=== PATIENT | male | born 1955 | race Caucasian/White ===

== ENCOUNTER 2022-01-03 16:03 | Inpatient (IN) | payer OTHER, SELFPAY ==
[2022-01-03] VITALS (14 sets, daily range): BP systolic 106–137; BP diastolic 61–82; PULSE 60–86; RESP 16; TEMP 36.6–37.3; O2SAT 97–100; BMI 27.7; BMI 28.6
--- NOTE | 2022-01-03 16:48 | ED.GENADULT ---
HPI - General Adult General Chief complaint: Skin/Abscess/Foreign Body Stated complaint: INFECTED BOIL UNDER RIGHT ARM Time Seen by Provider: 01/03/22 16:14 History of Present Illness HPI narrative: Bo is a 66-year-old male without significant past medical history that presents to emergency department at the request of his primary care physician who states she has concern for worsening infection and failed outpatient management. The patient was reported to have an abscess in his underarm that was subsequently believed to be an infected sebaceous cyst that was incised and drained by his primary care provider in the outpatient clinic. The patient was started on Septra 2 days prior and has completed 3 doses of antibiotic. He returned to his primary care provider today for re-evaluation and wound packing with increasing erythema, pain, and generalized malaise noted. The patient was sent to the emergency department for evaluation for possible sepsis secondary to skin infection. The patient denies fevers, but he reports chills and sweats. He denies nausea, vomiting, or abdominal pain. He denies chest pain or shortness of breath. The patient reports similar previous lesions on his right posterior shoulder and right groin; both resolved without significant intervention. Related Data Home Medications Medication Instructions Recorded Confirmed amoxicillin 500 mg capsule mg 01/03/22 aspirin 81 mg capsule 81 mg PO DAILY 01/03/22 01/03/22 cyclobenzaprine 10 mg tablet mg 01/03/22 finasteride 5 mg tablet mg 01/03/22 gabapentin 300 mg capsule mg 01/03/22 rosuvastatin 5 mg tablet mg 01/03/22 sildenafil 25 mg tablet mg 01/03/22 sulfamethoxazole 800 1 tab PO BID 01/03/22 01/03/22 mg-trimethoprim 160 mg tablet (Bactrim DS) tamsulosin 0.4 mg capsule mg PO 01/03/22 terbinafine HCl 250 mg tablet mg 01/03/22 Allergies Allergy/AdvReac Type Severity Reaction Status Date / Time No Known Drug Allergies Allergy Verified 01/03/22 16:23 Review of Systems Const: Reports: chills, fatigue, malaise and night sweats; Denies: fever Cardio: Denies: chest pain or shortness of breath with exertion Resp: Denies: shortness of breath or cough GI: Denies: abdominal pain, nausea, vomiting, diarrhea or constipation Musculo: Reports: extremity swelling, joint pain and limited range of motion Integ/Breast: Reports: redness, skin tenderness and sores Neuro: Denies: numbness in extremities Endo: Reports: fatigue PFSH PFSH Social History Smoking Status: Former smoker What tobacco products do you use: cigarettes Do you use any of these nicotine containing products: None Second hand tobacco smoke exposure: No How often do you have a drink containing alcohol: monthly or less How often do you have six or more drinks on one occasion: Never AUDIT-C Alcohol total score: 1 Non-prescribed substance use: denies use Exam Const: Vital Signs, click to edit/add: Vital Signs - 24 hr 01/03/22 16:18 01/03/22 16:20 01/03/22 17:00 Temperature 98 F Pulse Rate [Left P ulse Oximeter] 77 Respiratory Rate 16 Blood Pressure [Le ft Upper Arm] 127/69 127/69 127/67 Pulse Oximetry 99 01/03/22 17:20 01/03/22 17:30 01/03/22 17:55 Temperature Pulse Rate [Left P ulse Oximeter] 74 72 72 Respiratory Rate Blood Pressure [Le ft Upper Arm] 115/72 126/69 131/76 Pulse Oximetry 97 98 98 01/03/22 18:00 01/03/22 18:30 01/03/22 19:00 Temperature Pulse Rate [Left P ulse Oximeter] 72 61 62 Respiratory Rate Blood Pressure [Le ft Upper Arm] 130/69 129/66 116/63 Pulse Oximetry 100 99 98 01/03/22 19:25 Temperature 99.2 F Pulse Rate [Left P ulse Oximeter] Respiratory Rate Blood Pressure [Le ft Upper Arm] Pulse Oximetry Documenting provider has reviewed patient's vital signs: yes Common normals: no apparent distress, oriented x3, healthy appearing, alert and well nourished General appearance: cooperative, comfortable, well kempt and well developed Orientation/consciousness: Yes awake, Yes oriented to person, Yes oriented to place and Yes oriented to time HENMT: Common normals: normocephalic and hearing grossly normal bilaterally Head and scalp: normocephalic Resp: Common normals: normal respiratory effort, no retractions, no use of accessory muscles and clear to auscultation bilaterally Effort & inspection: able to speak in complete sentences Auscultation: clear to auscultation bilaterally Cardio: Common normals: regular rate, regular rhythm, S1 normal heart sound and S2 normal heart sound Rate: regular rate Rhythm: regular rhythm Heart sounds: S1 normal and S2 normal GI: Common normals: Normal to inspection, nondistended, normoactive bowel sounds present, soft to palpation and non-tender Palpation: soft Extremity: Common normals: normal to inspection, full ROM and no joint enlargement Neuro: Common normals: oriented x3 Sensorium/orientation: awake, alert, oriented to person, oriented to place and oriented to time Psych: Common normals: thought process normal, cooperative, affect normal, speech normal and activity/motor behavior normal Appearance: well kempt Attitude: calm and engaged Activity/motor behavior: appropriate eye contact Speech: normal speech Thought process: normal thought process Skin: Narrative: 1.5cm x 1.5cm lesion, draining seropurulent fluid in right axilla Course Course Hospital Course: Dawson presented to the ED at the request of his primary physician for further evaluation and treatment of presumed failed outpatient management of axillary abscess versus infected sebaceous cyst. The patient has received a dose of Clindamycin and was recommended to be switched to Vancomycin by hospitalist for admission antibiotics. Reevaluation(s) Reevaluation #1: Discussed findings with patient with previous plan of outpatient antibiotics now inappropriate as patient is unable to participate in the infusion center with COVID positive diagnosis. Time: 19:01 Vital Signs Vital signs: Initial Vital Signs Temperature 98 F 01/03/22 16:18 Temperature Source Temporal Artery Scan 01/03/22 16:18 Pulse Rate 77 01/03/22 16:18 Respiratory Rate 16 01/03/22 16:18 Blood Pressure 127/69 01/03/22 16:18 Blood Pressure Mean 88 01/03/22 16:18 Pulse Oximetry 99 01/03/22 16:18 Oxygen Delivery Method 01/03/22 16:18 Vital Signs Temperature 98 F 01/03/22 16:18 Pulse Rate 77 01/03/22 16:18 Respiratory Rate 16 01/03/22 16:18 Blood Pressure 127/69 01/03/22 16:18 Pulse Oximetry 99 01/03/22 16:18 Temperature 99.2 F 01/03/22 19:25 Pulse Rate 62 01/03/22 19:00 Respiratory Rate 16 01/03/22 16:18 Blood Pressure 116/63 01/03/22 19:00 Pulse Oximetry 98 01/03/22 19:00 Medical Decision Making Lab Data Labs: Lab Results 01/03/22 01/03/22 01/03/22 Range/Units 17:18 17:18 17:18 WBC 5.12 (4.50-11.00) K/uL RBC 4.59 (4.30-5.90) m/uL Hgb 14.6 (13.5-17.5) gm/dL Hct 42.7 (37.0-53.0) % MCV 93 (80-100) fL MCH 32 (26-34) pg MCHC 34 (32-36) gm/dL RDW Coeff of Nehal 12.5 (11.5-15.5) % Plt Count 166 (140-440) K/uL Neut % (Auto) 59.5 (42.0-72.0) % Lymph % (Auto) 21.3 (20-44) % Mccormick % (Auto) 17.8 H (0.0-11.0) % Eos % (Auto) 0.6 (0.0-7.0) % Baso % (Auto) 0.6 (0.0-3.0) % Neut # (Auto) 3.05 (1.7-7.0) K/uL Lymph # (Auto) 1.09 (0.90-2.90) K/uL Mccormick # (Auto) 0.90 (0.00-0.90) K/UL Eos # (Auto) 0.03 (0.00-0.50) K/uL Baso # (Auto) 0.03 (0.00-0.30) K/uL Abs Immat Gran (auto) 0.01 (0.00-0.30) K/uL Sodium 134 L (135-149) mmol/L Potassium 4.0 (3.6-5.1) mmol/L Chloride 106 (96-114) mmol/L Carbon Dioxide 23 (20-32) mmol/L BUN 19 (7-30) mg/dL Creatinine 1.1 (0.5-1.5) mg/dL Estimated Creat Clear 66.36 Estimated GFR 73 ml/min Glucose 106 (60-115) mg/dL Venous Lactic Acid (Serial Order) Calcium 8.5 (8.4-10.6) mg/dL Total Bilirubin 0.2 (0.1-1.5) mg/dL AST 34 (12-35) U/L ALT 26 (4-50) U/L Alkaline Phosphatase 84 (40-150) U/L Total Protein 6.7 (6.0-8.3) g/dL Albumin 3.9 (3.3-5.0) g/dL SARS-CoV-2 (PCR) POSITIVE SARS-CoV-2 A (Negative) 01/03/22 Range/Units 17:18 WBC (4.50-11.00) K/uL RBC (4.30-5.90) m/uL Hgb (13.5-17.5) gm/dL Hct (37.0-53.0) % MCV (80-100) fL MCH (26-34) pg MCHC (32-36) gm/dL RDW Coeff of Nehal (11.5-15.5) % Plt Count (140-440) K/uL Neut % (Auto) (42.0-72.0) % Lymph % (Auto) (20-44) % Mccormick % (Auto) (0.0-11.0) % Eos % (Auto) (0.0-7.0) % Baso % (Auto) (0.0-3.0) % Neut # (Auto) (1.7-7.0) K/uL Lymph # (Auto) (0.90-2.90) K/uL Mccormick # (Auto) (0.00-0.90) K/UL Eos # (Auto) (0.00-0.50) K/uL Baso # (Auto) (0.00-0.30) K/uL Abs Immat Gran (auto) (0.00-0.30) K/uL Sodium (135-149) mmol/L Potassium (3.6-5.1) mmol/L Chloride (96-114) mmol/L Carbon Dioxide (20-32) mmol/L BUN (7-30) mg/dL Creatinine (0.5-1.5) mg/dL Estimated Creat Clear Estimated GFR ml/min Glucose (60-115) mg/dL Venous Lactic Acid (Serial Order) Calcium (8.4-10.6) mg/dL Total Bilirubin (0.1-1.5) mg/dL AST (12-35) U/L ALT (4-50) U/L Alkaline Phosphatase (40-150) U/L Total Protein (6.0-8.3) g/dL Albumin (3.3-5.0) g/dL SARS-CoV-2 (PCR) (Negative) Discharge Plan Discharge Clinical Impression: COVID-19 Cellulitis Qualifiers: Site of cellulitis: extremity Site of cellulitis of extremity: axilla Laterality: right Qualified Code(s): L03.111 - Cellulitis of right axilla Patient Disposition: Admitted As Inpatient Condition: Stable Activity Level: No Restrictions Discharge Diet: Regular
[2022-01-03 17:31] LABS: Lactate Sepsis w/Reflex* 0.6 mmol/L (0.5-1.9)
[2022-01-03] MEDS: 0.9 % SODIUM CHLORIDE 500 ML 500 ML IV (17:35)
[2022-01-03 17:40] LABS: Basophils Absolute Auto 0.03 K/uL (0.00-0.30); Basophils Percent Auto 0.6 % (0.0-3.0); Eosinophils Absolute Auto 0.03 K/uL (0.00-0.50); Eosinophils Percent Auto 0.6 % (0.0-7.0); Hematocrit 42.7 % (37.0-53.0); Hemoglobin* 14.6 gm/dL (13.5-17.5); Immature Granulocytes Abs Auto 0.01 K/uL (0.00-0.30); Lymphocytes Absolute Auto 1.09 K/uL (0.90-2.90); Lymphocytes Percent Auto 21.3 % (20-44); Mean Corpuscular HGB Conc 34 gm/dL (32-36); Mean Corpuscular Hemoglobin 32 pg (26-34); Mean Corpuscular Volume 93 fL (80-100); Monocytes Percent Auto 17.8 % (0.0-11.0); Neutrophils Absolute Auto 3.05 K/uL (1.7-7.0); Neutrophils Percent Auto 59.5 % (42.0-72.0); Platelet Count* 166 K/uL (140-440); RDW Coefficient of Variation % 12.5 % (11.5-15.5); Red Blood Count 4.59 m/uL (4.30-5.90); White Blood Count* 5.12 K/uL (4.50-11.00)
[2022-01-03] MEDS: CLINDAMYCIN 900 MG/50 ML-D5W IVPB (17:44)
[2022-01-03 17:47] LABS: Slide Review Reflex No
[2022-01-03 17:52] LABS: Albumin* 3.9 g/dL (3.3-5.0); Chloride* 106 mmol/L (96-114); Sodium* 134 mmol/L (135-149)
[2022-01-03 17:55] LABS: Alanine Aminotransferase* 26 U/L (4-50); Alkaline Phosphatase* 84 U/L (40-150); Aspartate Amino Transferase* 34 U/L (12-35); Bilirubin Total* 0.2 mg/dL (0.1-1.5); Blood Urea Nitrogen* 19 mg/dL (7-30); Carbon Dioxide* 23 mmol/L (20-32); Creatinine* 1.1 mg/dL (0.5-1.5); Est. Creatinine Clearance* 66.36; Estimated Glomerular Filt Rate 73 ml/min; Glucose* 106 mg/dL (60-115); Total Protein* 6.7 g/dL (6.0-8.3)
[2022-01-03 17:56] LABS: Calcium* 8.5 mg/dL (8.4-10.6)
[2022-01-03 18:36] LABS: SARS PCR* POSITIVE SARS-CoV-2 (Negative)
--- NOTE | 2022-01-03 19:20 | W.PC.EDHO ---
Primary Language: Slovak Preferred Language: Orientation Status: [x] Alert & Oriented [] Slight Confusion [] Known Dx Dementia Transfers By: [x] Assist of 1 [] Assist of 2 [] Lift Active Medications Discontinued Medications Generic Name Dose Route Start Last Admin Trade Name Hoang PRN Reason Stop Dose Admin Clindamycin Phosphate 900 mg 01/03/22 17:30 01/03/22 17:44 Clindamycin 900 Mg/50 [id number] IVPB 01/03/22 17:31 900 mg ONCE ONE Administration Sodium Chloride 500 mls @ 500 mls/hr 01/03/22 17:12 01/03/22 17:35 0.9 % Sodium Chloride 500 Ml IV 01/03/22 18:11 500 mls/hr .Q1H ONE Administration Description of Symptoms ED Triage Present Problem Patient here with cyst in right axilla since last Description . Started on abx by Dr. Arias, a sulfa. Followed up today and is worse. Dr. Arias recommended ED evaluation. ED Triage Date of Onset of 12/27/21 Symptoms Pain Pain Intensity [Right Arm] 6 Pain Scale Used [Right Arm] Numeric (1 - 10) IV Insertion/Site Date of IV Line Insertion [ 01/03/22 Left Antecubital] Oxygen Administration Pulse Oximetry 98 Pulse Oximetry 98 Pulse Oximetry 97 Pulse Oximetry 99 Oxygen Delivery Method Room Air Oxygen Delivery Method Room Air Oxygen Delivery Method Room Air Oxygen Delivery Method Room Air
[2022-01-03 19:33] LABS: Lactate Sepsis 2 Hour 0.7 mmol/L (0.5-1.9)
--- NOTE | 2022-01-03 20:36 | ED.NURSE ---
Report called to [facility] FLOR Milligan.
[2022-01-03] MEDS: ENOXAPARIN 30 MG/0.3ML INJ SUBCUT (22:04)
[2022-01-03] MEDS: GABAPENTIN 300 MG CAPSULE PO (22:04)
--- NOTE | 2022-01-03 22:23 | PC.NURSE ---
Patient has refused Levaquin due to history of tendon surgery. Dr. Cindy park.
--- NOTE | 2022-01-03 22:27 | PM.IMHP1 ---
Hospitalist- H&P: HPI History of Present Illness Date Seen: 01/04/22 Chief complaint: INFECTED BOIL UNDER RIGHT ARM Narrative: Dawson uQispe is a 66 year old male presents the emergency room with worsening right axillary redness and pain. He has had a lump in his right axilla for some time. He became painful and erythematous a few days ago. He had a clinic appointment 2 days ago where he was identified with a sebaceous cyst. It sounds like this was infected any had an I&D of this in clinic. Cultures were done at that time and show Gram-positive cocci. Id and sensitivity pending. At that time he was started on Sulfatrim. The redness in his axilla has gotten significantly worse in the last 2 days. Packing was removed from his I&D site today. He also notes that he had onset of generalized achiness, fatigue and malaise starting 2 days ago. He has had a little bit of cough. A little bit of sore throat and rhinorrhea. Has had some chills and sweats. He is not aware of having a documented fever. He has had no chest pain or abdominal pain. He has been eating less with a poor appetite but still able to eat. No vomiting. No diarrhea. He is vaccinated for COVID. He did have a presumed COVID exposure with a large gathering without masking on Friday, 4 days ago. Review of Systems Narrative: Patient reports other than the above issues he has been feeling well. 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 He lives with his who is his healthcare power of breaker oiler. Code status is full. He does not smoke. He occasionally drinks alcohol. Smoking Status: Former smoker What tobacco products do you use: cigarettes Smoking quit date/years: >15 years ago Do you use any of these nicotine containing products: None Second hand tobacco smoke exposure: No How often do you have a drink containing alcohol: monthly or less How often do you have six or more drinks on one occasion: Never AUDIT-C Alcohol total score: 1 Non-prescribed substance use: denies use Caffeine: Yes (2 cups of coffee/day) service: No Meds Home Medications and Allergies Home Medications Medication Instructions Recorded Confirmed Type amoxicillin 500 mg capsule 2,000 mg PO PRN 01/03/22 01/04/22 History aspirin 81 mg capsule 81 mg PO DAILY 01/03/22 01/03/22 History cyclobenzaprine 10 mg tablet 10 mg PO TID PRN 01/03/22 01/03/22 History finasteride 5 mg tablet 5 mg PO DAILY 01/03/22 01/03/22 History gabapentin 300 mg capsule 300 mg PO HS PRN 01/03/22 01/03/22 History rosuvastatin 5 mg tablet 5 mg PO Q48H 01/03/22 01/04/22 History sildenafil 25 mg tablet 25 mg PO DAILY PRN 01/03/22 01/04/22 History sulfamethoxazole 800 1 tab PO BID 01/03/22 01/03/22 History mg-trimethoprim 160 mg tablet (Bactrim DS) tamsulosin 0.4 mg capsule 0.4 mg PO HS 01/03/22 01/03/22 History terbinafine HCl 250 mg tablet 250 mg PO DAILY 01/03/22 01/04/22 History Allergies Allergy/AdvReac Type Severity Reaction Status Date / Time No Known Drug Allergies Allergy Verified 01/03/22 16:23 Exam Narrative: Exam Narrative: He is alert and appears in no distress. Eyes normal. Oropharynx normal. Neck is supple without mass or adenopathy. Respirations are clear to auscultation. Cardiovascular: S1, S2, regular rate and rhythm. No murmur gallop or rub. Right axilla with a very tender less than 1 cm ulcer draining a small amount of purulent material. He has a hand sized area of erythema in the axilla extending somewhat down on the medial upper arm. Abdomen: Bowel sounds active. Abdomen is soft without tenderness. He has intact pulses and sensation all 4 extremities. No edema. No rash outside the axilla Const: Vital Signs, click to edit/add: Vital Signs - 24 hr 01/03/22 16:18 01/03/22 16:20 01/03/22 17:00 Temperature 98 F Pulse Rate [Left P ulse Oximeter] 77 Respiratory Rate 16 Blood Pressure [Le ft Upper Arm] 127/69 127/69 127/67 Pulse Oximetry 99 01/03/22 17:20 01/03/22 17:30 01/03/22 17:55 Temperature Pulse Rate [Left P ulse Oximeter] 74 72 72 Respiratory Rate Blood Pressure [Le ft Upper Arm] 115/72 126/69 131/76 Pulse Oximetry 97 98 98 01/03/22 18:00 01/03/22 18:30 01/03/22 19:00 Temperature Pulse Rate [Left P ulse Oximeter] 72 61 62 Respiratory Rate Blood Pressure [Le ft Upper Arm] 130/69 129/66 116/63 Pulse Oximetry 100 99 98 01/03/22 19:25 01/03/22 19:30 01/03/22 20:00 Temperature 99.2 F Pulse Rate [Left P ulse Oximeter] 64 60 Respiratory Rate Blood Pressure [Le ft Upper Arm] 129/80 106/82 Pulse Oximetry 99 99 Documenting provider has reviewed patient's vital signs: yes Hospitalist - H&P: Result Labs Labs: Short CBC 01/03/22 Range/Units 17:18 WBC 5.12 (4.50-11.00) K/uL Hgb 14.6 (13.5-17.5) gm/dL Hct 42.7 (37.0-53.0) % Plt Count 166 (140-440) K/uL BMP 01/03/22 17:18 Sodium 134 L Potassium 4.0 Chloride 106 Carbon Dioxide 23 BUN 19 Creatinine 1.1 Glucose 106 Calcium 8.5 Liver Function 01/03/22 Range/Units 17:18 Total Bilirubin 0.2 (0.1-1.5) mg/dL AST 34 (12-35) U/L ALT 26 (4-50) U/L Alkaline Phosphatase 84 (40-150) U/L Albumin 3.9 (3.3-5.0) g/dL Assessment and Plan Assessment and plan (1) Cellulitis of axilla, right: Status: Acute Assessment and Plan: Initiate treatment with vancomycin. Consider treatment for Gram negative infection such as Pseudomonas with quinolone if not getting better or if cultures show Gram-negative rods. Monitor for recurrence of abscess. (2) COVID-19 virus infection: Status: Acute Assessment and Plan: Initiate Paxlovid. will pick up worker prescription at outpatient pharmacy tomorrow (3) Recurrent deep vein thrombosis (DVT): Problem comment: recurrent after elective orthopedic surgery Status: Acute Assessment and Plan: Enoxaparin Plan Hospitalize pending wound cultures and clinical improvement. Transition to appropriate outpatient antibiotic therapy when able. Monitor for complications of COVID
[2022-01-04] VITALS (8 sets, daily range): BP systolic 90–122; BP diastolic 54–73; PULSE 55–69; RESP 16–18; TEMP 36.2–37.8; O2SAT 97–100
[2022-01-04] MEDS: IBUPROFEN 400 MG TABLET 600 MG PO ×3 (00:19→14:29)
--- NOTE | 2022-01-04 05:04 | PC.NURSE ---
Addendum entered by Baldomero Tran RN 01/04/22 06:30: BPs 99/57 and 90/58 Original Note: Temp elev 100.0. Ibuprofen given for that and mild pain w/dry cough w/relief. Mepilex applied to axilla which had about a 1cm o/a w/faint pinkness surrounding. Up ad bruno in room, tolerating diet and ind w/cares. Pt educated on position changes.
--- NOTE | 2022-01-04 08:07 | CRLHL7_ITS ---
For Patients: As a result of the Cures Act, medical imaging exams and procedure reports are released immediately into your electronic medical record. You may view this report before your referring provider. If you have questions, please contact your health care provider. INDICATION: COVID TECHNIQUE: Single view chest. FINDINGS: Normal cardiac mediastinal silhouette. Question extremely subtle opacities in the lung apices which could represent subtle infiltrate versus be related to technique. There is no consolidation. No effusion or pneumothorax. Dictated by Karolina Duong MD @ 01/04/2022 10:28:33 AM (Electronically Signed)
[2022-01-04] MEDS: ENOXAPARIN 30 MG/0.3ML INJ SUBCUT ×2 (08:27→20:21)
[2022-01-04] MEDS: FINASTERIDE 5 MG TABLET PO (08:28)
[2022-01-04 10:03] LABS: Lactate* 0.4 mmol/L (0.5-1.9)
[2022-01-04 10:07] LABS: Basophils Absolute Auto 0.02 K/uL (0.00-0.30); Basophils Percent Auto 0.4 % (0.0-3.0); Eosinophils Absolute Auto 0.03 K/uL (0.00-0.50); Eosinophils Percent Auto 0.6 % (0.0-7.0); Hematocrit 40.9 % (37.0-53.0); Hemoglobin* 13.9 gm/dL (13.5-17.5); Lymphocytes Absolute Auto 1.61 K/uL (0.90-2.90); Lymphocytes Percent Auto 34.8 % (20-44); Mean Corpuscular HGB Conc 34 gm/dL (32-36); Mean Corpuscular Hemoglobin 32 pg (26-34); Mean Corpuscular Volume 94 fL (80-100); Monocytes Percent Auto 17.1 % (0.0-11.0); Neutrophils Absolute Auto 2.17 K/uL (1.7-7.0); Neutrophils Percent Auto 47.1 % (42.0-72.0); Platelet Count* 149 K/uL (140-440); RDW Coefficient of Variation % 12.8 % (11.5-15.5); Red Blood Count 4.35 m/uL (4.30-5.90); White Blood Count* 4.62 K/uL (4.50-11.00)
[2022-01-04 10:13] LABS: Slide Review Reflex No
[2022-01-04 10:23] LABS: Chloride* 109 mmol/L (96-114); Potassium* 4.4 mmol/L (3.6-5.1); Sodium* 136 mmol/L (135-149)
[2022-01-04 10:26] LABS: Creatinine* 0.9 mg/dL (0.5-1.5); Estimated Glomerular Filt Rate 93 ml/min
[2022-01-04 10:27] LABS: Blood Urea Nitrogen* 15 mg/dL (7-30); Carbon Dioxide* 23 mmol/L (20-32); Glucose* 89 mg/dL (60-115); Magnesium* 2.1 mg/dL (1.5-2.6)
[2022-01-04 10:29] LABS: INR 1.08 (0.91-1.10); Prothrombin Time 14.4 Seconds
[2022-01-04 10:37] LABS: C Reactive Protein* < 0.5 mg/dL (0.5-1.0)
--- NOTE | 2022-01-04 11:50 | P.IMPN_ITS ---
Progress Note: A&P Assessment and plan (1) Cellulitis of axilla, right: Status: Acute Assessment and Plan: Patient felt the risks of Levaquin as it regards tendon rupture were unacceptable, he declined the dose last night. He is making excellent clinical progress with the IV vanc. Partial sebaceous cyst is still present - will ask Marjorie from wound clinic and or general surgery to assess. Retraction from original outline of cellulitis noted. Wound cultures and blood cultures were taken last night. Dr. Arias - did this on 01/01 * 0?Result Notes Culture No Growth. ? GRAM STAIN ?4+ PMNs1+ Gram Positive Cocci Resulting Agency:?[facility] Specimen Collected:?01/01/22 ?3:25 PMLast Resulted:?01/02/22 ?2:17 PM (2) COVID-19 virus infection: Status: Acute Assessment and Plan: Not hypoxic. Mild to moderate symptoms. Day 1 paxlovid. (3) Recurrent deep vein thrombosis (DVT): Problem details: recurrent after elective orthopedic surgery Status: Acute Assessment and Plan: Noted Subjective Date Seen: 01/04/22 Interval history: Daily Progress Note - Hospital Medicine Day #: 2 Paxlovid Day#1 Covid + PCR 01/03 CC: swelling, redness in the right armpit less. bad cold symptoms of covid persist. OVERNIGHT UPDATES FROM STAFF & MED, LAB, IMAGING UPDATES 106/55 Pulse 58 Afebrile CBC reassuring this morning Normal INR Metabolic panel normal Wound and blood cultures pending Vanc 12 150 mg q.12 Chest x-ray this morning FINDINGS: Normal cardiac mediastinal silhouette. Question extremely subtle opacities in the lung apices which could represent subtle infiltrate versus be related to technique. There is no consolidation. No effusion or pneumothorax. Review of Systems: See subjective Cardiac: No new chest pain/pressure/palpitations. Respiratory: no new dyspnea. GI: No abdominal bloating Objective: Vitals: see above Lungs: Clear. Cardiac: S1S2. Disposition/Potential discharge - Likely to return to previous living situation. Total time is 70 minutes with greater than 50% spent in counseling and coordination of care. Exam Const: Vital Signs, click to edit/add: Vital Signs - 24 hr 01/03/22 16:18 01/03/22 16:20 01/03/22 17:00 Temperature 98 F Pulse Rate [Left P ulse Oximeter] 77 Pulse Rate [Pulse Oximeter] Respiratory Rate 16 Blood Pressure [Le ft Arm] Blood Pressure [Le ft Upper Arm] 127/69 127/69 127/67 Blood Pressure [Ri ght Arm] Pulse Oximetry 99 01/03/22 17:20 01/03/22 17:30 01/03/22 17:55 Temperature Pulse Rate [Left P ulse Oximeter] 74 72 72 Pulse Rate [Pulse Oximeter] Respiratory Rate Blood Pressure [Le ft Arm] Blood Pressure [Le ft Upper Arm] 115/72 126/69 131/76 Blood Pressure [Ri ght Arm] Pulse Oximetry 97 98 98 01/03/22 18:00 01/03/22 18:30 01/03/22 19:00 Temperature Pulse Rate [Left P ulse Oximeter] 72 61 62 Pulse Rate [Pulse Oximeter] Respiratory Rate Blood Pressure [Le ft Arm] Blood Pressure [Le ft Upper Arm] 130/69 129/66 116/63 Blood Pressure [Ri ght Arm] Pulse Oximetry 100 99 98 01/03/22 19:25 01/03/22 19:30 01/03/22 20:00 Temperature 99.2 F Pulse Rate [Left P ulse Oximeter] 64 60 Pulse Rate [Pulse Oximeter] Respiratory Rate Blood Pressure [Le ft Arm] Blood Pressure [Le ft Upper Arm] 129/80 106/82 Blood Pressure [Ri ght Arm] Pulse Oximetry 99 99 01/03/22 22:42 01/03/22 22:52 01/04/22 01:41 Temperature 99.2 F 100.0 F H Pulse Rate [Left P ulse Oximeter] Pulse Rate [Pulse Oximeter] 86 69 Respiratory Rate 16 16 Blood Pressure [Le ft Arm] Blood Pressure [Le ft Upper Arm] Blood Pressure [Ri ght Arm] 137/61 99/57 L Pulse Oximetry 99 99 97 01/04/22 04:12 01/04/22 08:20 01/04/22 09:15 Temperature 97.6 F 97.1 F L Pulse Rate [Left P ulse Oximeter] Pulse Rate [Pulse Oximeter] 60 58 L 58 L Respiratory Rate 16 16 16 Blood Pressure [Le ft Arm] 106/55 L Blood Pressure [Le ft Upper Arm] Blood Pressure [Ri ght Arm] 90/58 L Pulse Oximetry 100 100 Labs Labs: Laboratory Results - last 24 hr 01/03/22 01/03/22 01/03/22 17:18 17:18 17:18 WBC 5.12 RBC 4.59 Hgb 14.6 Hct 42.7 MCV 93 MCH 32 MCHC 34 RDW Coeff of Nehal 12.5 Plt Count 166 Neut % (Auto) 59.5 Lymph % (Auto) 21.3 [place]uster % (Auto) 17.8 H Eos % (Auto) 0.6 Baso % (Auto) 0.6 Neut # (Auto) 3.05 Lymph # (Auto) 1.09 [place] # (Auto) 0.90 Eos # (Auto) 0.03 Baso # (Auto) 0.03 Abs Immat Gran (auto) 0.01 INR Sodium 134 L Potassium 4.0 Chloride 106 Carbon Dioxide 23 BUN 19 Creatinine 1.1 Estimated Creat Clear 66.36 Estimated GFR 73 Glucose 106 Lactate Venous Lactic Acid (Serial Order) Calcium 8.5 Magnesium Total Bilirubin 0.2 AST 34 ALT 26 Alkaline Phosphatase 84 C-Reactive Protein Total Protein 6.7 Albumin 3.9 SARS-CoV-2 (PCR) POSITIVE SARS-CoV-2 A 01/03/22 01/04/22 01/04/22 17:18 09:50 09:50 WBC 4.62 RBC 4.35 Hgb 13.9 Hct 40.9 MCV 94 MCH 32 MCHC 34 RDW Coeff of Nehal 12.8 Plt Count 149 Neut % (Auto) 47.1 Lymph % (Auto) 34.8 [place] % (Auto) 17.1 H Eos % (Auto) 0.6 Baso % (Auto) 0.4 Neut # (Auto) 2.17 Lymph # (Auto) 1.61 [place]uster # (Auto) 0.80 Eos # (Auto) 0.03 Baso # (Auto) 0.02 Abs Immat Gran (auto) 0.00 INR 1.08 Sodium Potassium Chloride Carbon Dioxide BUN Creatinine Estimated Creat Clear Estimated GFR Glucose Lactate Venous Lactic Acid (Serial Order) Calcium Magnesium Total Bilirubin AST ALT Alkaline Phosphatase C-Reactive Protein Total Protein Albumin SARS-CoV-2 (PCR) 01/04/22 01/04/22 09:50 09:50 WBC RBC Hgb Hct MCV MCH MCHC RDW Coeff of Nehal Plt Count Neut % (Auto) Lymph % (Auto) Custer % (Auto) Eos % (Auto) Baso % (Auto) Neut # (Auto) Lymph # (Auto) Custer # (Auto) Eos # (Auto) Baso # (Auto) Abs Immat Gran (auto) INR Sodium 136 Potassium 4.4 Chloride 109 Carbon Dioxide 23 BUN 15 Creatinine 0.9 Estimated Creat Clear 73.00 Estimated GFR 93 Glucose 89 Lactate 0.4 L Venous Lactic Acid (Serial Order) Calcium 8.0 L Magnesium 2.1 Total Bilirubin AST ALT Alkaline Phosphatase C-Reactive Protein < 0.5 L Total Protein Albumin SARS-CoV-2 (PCR)
--- NOTE | 2022-01-04 15:50 | PM.WSCN ---
Date of Consult Patient: Trena Patient Consult date: 01/04/22 Requesting Physician: Hospitalist Primary Care Provider: Alida Arias MD Consult Narrative Reason for consult: Cellulitis right axilla Narrative: Dawson Quispe is a 66 year old male without significant past medical history that presented to the ER on 01/03/22 at the request of his PCP for further eval of infected right axilla sebaceous cyst he had failed outpatient management. Five days ago his primary care provider had performed an I and D to the area and patient was started on oral antibiotics. Wound culture was completed and showed Gram-positive cocci. Returned to the clinic 4 days later for follow-up at that time he was noted to be febrile and had deterioration of the area. In the clinic he was noted to have increasing erythema, pain in general malaise. There was concern for possible sepsis secondary to cellulitis of right axilla The patient was reported to have an abscess in his underarm that was subsequently believed to be an infected sebaceous cyst that was incised and drained by his primary care provider in the outpatient clinic.? While in the ER patient received COVID testing and was found to be COVID + PCR 01/03. Has received both his vaccinations and he has received a booster. Exposure was believed to have occurred 5 days ago when he attended a large uatsdin gathering and states he did not wear a mask at that time otherwise he had been faithful wearing a mask. Does report that prior to this hospitalization over the past 4-5 days he has experienced chills and sweats and fatigue. Has had cough and runny nose he was not aware of having a fever. Patient was started on Paxlovid and Lovenox as he has history of recurrent DVTs. Since being admitted to inpatient repeat wound culture has been collected and is pending at this time blood cultures were also completed. Patient was started on IV vancomycin. He has since improved and there is notable retraction of his cellulitis within the borders of the skin markings, but there remains partial sebaceous cyst and wound services has been requested to evaluate and if deemed appropriate evacuate remnants and debride any necessary nonviable tissue. Review of Systems Status of ROS: Reports: 6 or more systems reviewed and unremarkable except as noted in History and below Const: Reports: fever (afebrile for the las 12 hours) Eyes: Reports: other (wearing glasses) [facility] Medical History BPH (benign prostatic hyperplasia) Concussion Recurrent deep vein thrombosis (DVT) Surgical History History of appendectomy History of arthroplasty of left knee History of fusion of lumbar spine History of tonsillectomy History of total hip arthroplasty Family History (Updated 01/03/22 @ 22:34 by Farhat White MD) Father Diabetes High blood pressure Brother Coronary artery disease High blood pressure Mother High blood pressure Social History Smoking Status: Former smoker What tobacco products do you use: cigarettes Smoking quit date/years: >15 years ago Do you use any of these nicotine containing products: None Second hand tobacco smoke exposure: No How often do you have a drink containing alcohol: monthly or less How often do you have six or more drinks on one occasion: Never AUDIT-C Alcohol total score: 1 Non-prescribed substance use: denies use Caffeine: Yes (2 cups of coffee/day) service: No Meds Home Medications and Allergies Home Medications Medication Instructions Recorded Confirmed Type amoxicillin 500 mg capsule 2,000 mg PO PRN 01/03/22 01/04/22 History aspirin 81 mg capsule 81 mg PO DAILY 01/03/22 01/03/22 History cyclobenzaprine 10 mg tablet 10 mg PO TID PRN 01/03/22 01/03/22 History finasteride 5 mg tablet 5 mg PO DAILY 01/03/22 01/03/22 History gabapentin 300 mg capsule 300 mg PO HS PRN 01/03/22 01/03/22 History rosuvastatin 5 mg tablet 5 mg PO Q48H 01/03/22 01/04/22 History sildenafil 25 mg tablet 25 mg PO DAILY PRN 01/03/22 01/04/22 History sulfamethoxazole 800 1 tab PO BID 01/03/22 01/03/22 History mg-trimethoprim 160 mg tablet (Bactrim DS) tamsulosin 0.4 mg capsule 0.4 mg PO HS 01/03/22 01/03/22 History terbinafine HCl 250 mg tablet 250 mg PO DAILY 01/03/22 01/04/22 History Allergies Allergy/AdvReac Type Severity Reaction Status Date / Time No Known Drug Allergies Allergy Verified 01/03/22 16:23 Exam Const: Vital Signs, click to edit/add: Vital Signs - 24 hr 01/03/22 16:18 01/03/22 16:20 01/03/22 17:00 Temperature 98 F Pulse Rate [Left P ulse Oximeter] 77 Pulse Rate [Pulse Oximeter] Respiratory Rate 16 Blood Pressure [Le ft Arm] Blood Pressure [Le ft Upper Arm] 127/69 127/69 127/67 Blood Pressure [Ri ght Arm] Pulse Oximetry 99 01/03/22 17:20 01/03/22 17:30 01/03/22 17:55 Temperature Pulse Rate [Left P ulse Oximeter] 74 72 72 Pulse Rate [Pulse Oximeter] Respiratory Rate Blood Pressure [Le ft Arm] Blood Pressure [Le ft Upper Arm] 115/72 126/69 131/76 Blood Pressure [Ri ght Arm] Pulse Oximetry 97 98 98 01/03/22 18:00 01/03/22 18:30 01/03/22 19:00 Temperature Pulse Rate [Left P ulse Oximeter] 72 61 62 Pulse Rate [Pulse Oximeter] Respiratory Rate Blood Pressure [Le ft Arm] Blood Pressure [Le ft Upper Arm] 130/69 129/66 116/63 Blood Pressure [Ri ght Arm] Pulse Oximetry 100 99 98 01/03/22 19:25 01/03/22 19:30 01/03/22 20:00 Temperature 99.2 F Pulse Rate [Left P ulse Oximeter] 64 60 Pulse Rate [Pulse Oximeter] Respiratory Rate Blood Pressure [Le ft Arm] Blood Pressure [Le ft Upper Arm] 129/80 106/82 Blood Pressure [Ri ght Arm] Pulse Oximetry 99 99 01/03/22 22:42 01/03/22 22:52 01/04/22 01:41 Temperature 99.2 F 100.0 F H Pulse Rate [Left P ulse Oximeter] Pulse Rate [Pulse Oximeter] 86 69 Respiratory Rate 16 16 Blood Pressure [Le ft Arm] Blood Pressure [Le ft Upper Arm] Blood Pressure [Ri ght Arm] 137/61 99/57 L Pulse Oximetry 99 99 97 01/04/22 04:12 01/04/22 08:20 01/04/22 09:15 Temperature 97.6 F 97.1 F L Pulse Rate [Left P ulse Oximeter] Pulse Rate [Pulse Oximeter] 60 58 L 58 L Respiratory Rate 16 16 16 Blood Pressure [Le ft Arm] 106/55 L Blood Pressure [Le ft Upper Arm] Blood Pressure [Ri ght Arm] 90/58 L Pulse Oximetry 100 100 01/04/22 13:20 Temperature 97.6 F Pulse Rate [Left P ulse Oximeter] Pulse Rate [Pulse Oximeter] 55 L Respiratory Rate 16 Blood Pressure [Le ft Arm] 115/73 Blood Pressure [Le ft Upper Arm] Blood Pressure [Ri ght Arm] Pulse Oximetry 100 Documenting provider has reviewed patient's vital signs: yes Common normals: no apparent distress and alert General appearance: cooperative Orientation/consciousness: Yes awake HENMT: Common normals: normocephalic, head/scalp atraumatic and external ears normal Head and scalp: normocephalic and atraumatic External ear: external ears normal Eye: Other: wearing glasses Neck & C-Spine: Common normals: no lymphadenopathy General: normal visual inspection Chest: Breast/axilla inspection: abnormal inspection of the axilla Other: right axilla with diffuse erythema extending circumferentially from [id number], open drainage ulceration with purulent fibrosis material visualized on visual inspection. tender to palpation, fluctuant Resp: Common normals: normal respiratory effort Effort & inspection: able to speak in complete sentences Neuro: Sensorium/orientation: awake and alert Speech: speech normal Gait (neuro): normal gait Psych: Common normals: mental status grossly normal and speech normal Attitude: calm and engaged Activity/motor behavior: appropriate eye contact Speech: normal speech Skin: Common normals: skin turgor normal Narrative: tender fluctuant infected cyst with surrounding erythema maintained within skin markings to right axilla measuring [id number] and right posterior shoulder measuring 0.5cmX0.5cm. General skin exam: turgor normal Lesions: lesion noted (right axilla and right posterior shoulder ) Wounds: wounds noted drainage and with surrounding erythema Labs Labs: Short CBC 01/03/22 01/04/22 Range/Units 17:18 09:50 WBC 5.12 4.62 (4.50-11.00) K/uL Hgb 14.6 13.9 (13.5-17.5) gm/dL Hct 42.7 40.9 (37.0-53.0) % Plt Count 166 149 (140-440) K/uL BMP 01/03/22 01/04/22 17:18 09:50 Sodium 134 L 136 Potassium 4.0 4.4 Chloride 106 109 Carbon Dioxide 23 23 BUN 19 15 Creatinine 1.1 0.9 Glucose 106 89 Calcium 8.5 8.0 L Liver Function 01/03/22 Range/Units 17:18 Total Bilirubin 0.2 (0.1-1.5) mg/dL AST 34 (12-35) U/L ALT 26 (4-50) U/L Alkaline Phosphatase 84 (40-150) U/L Albumin 3.9 (3.3-5.0) g/dL Assessment and Plan Assessment and plan (1) Cellulitis of axilla, right: Status: Acute Assessment and Plan: Keep area clean and covered. Nursing to utilize surgical clippers to pair down axilla hair prior to discharge. Nursing to change dressing on 01/05/22, then EOD and PRN if saturated. Right axilla: cleanse with vashe, taking care to irrigate into wound. cut small strip of Aquacel Ag and gently pack into wound, leaving tail and making sure to not overpack the wound. Cover with mepilex, or similar border foam dressing. Right posterior shoulder: wound was packed with a small amount of aquacel Ag. However, due to small size of wound, okay if nursing deems appropriate to transition to applying Medihoney to the wound bed and covering with Mepilex. Referral to wound center, patient to follow-up in wound center on 01/08/22 at 0930. Patient to call wound center with any ongoing wound care needs after discharge from inpatient services: [phone] (2) COVID-19 virus infection: Status: Acute (3) Recurrent deep vein thrombosis (DVT): Problem comment: recurrent after elective orthopedic surgery Status: Acute Procedures I/D Type: abscess (Consent: Verbal consent obtained. Risks, benefits, and alternatives were discussed. ) Details: complex Site: other (axila and right posterior shoulder.) Side (if applicable): right Anesthetic used: lidocaine 1% (with EPI. was injected into the skin and subcutaneous tissue around the cyst.) Technique: incised with #11 blade (used to create an ellipse and completely excise the cyst; excised from the surrounding subcutaneous fat. excised cyst was discarded. ) Amount of fluid (mL): 5 (Gently probed with curved hemostats to break up loculations. Manually expressed purulent, fibrosis material, ) Irrigation: Yes Packing used?: plain (Aquacel Ag packed into wound. covered with mepilex.) Complications: other ( Hemostasis was achieved with pressure )
[2022-01-04] MEDS: ACETAMINOPHEN 325 MG TABLET 650 MG PO (16:22)
[2022-01-04] MEDS: OXYCODONE 5 MG TABLET PO (17:38)
[2022-01-04] MEDS: SENNOSIDES 1 TAB TABLET PO (17:38)
--- NOTE | 2022-01-04 19:00 | PC.NURSE ---
End of shift-- Very pleasant and cooperative, alert and oriented patient. VSS and pt is afebrile. SPO2 maintained >94% on RA. He c/o pain in his right armpit and shoulder following drainage of cysts by wound nurse earlier today which he rated 4-5 out of 10, but appeared much more uncomfortable. He was given Tylenol and Motrin with no relief and MD was notified. Pt given Oxycodone per MD order and stated improvement following. LS CTA and pt c/o a productive cough with yellowish sputum. BS+ x4 and pt stated a normal BM yesterday, but was given PRN senna prophylactically with Oxycodone. He denied nausea and ate 100% of a regular diet without difficulty. He was up independently in room and tolerated it well. was at bedside today and appears very loving and supportive. Report to oncoming shift.
[2022-01-04] MEDS: GABAPENTIN 300 MG CAPSULE PO (20:21)
[2022-01-05] VITALS (9 sets, daily range): BP systolic 105–134; BP diastolic 59–81; PULSE 48–62; RESP 12–18; TEMP 36.3–36.8; O2SAT 98–100
--- NOTE | 2022-01-05 06:15 | PC.NURSE ---
Shift note: Right chest & shoulder Mepilex is intact and clean, no drainage noted, redness reduced from an outline. Pt is afebrile, independent in the room, no c/o pain throughout this shift
[2022-01-05 07:29] LABS: Hematocrit 40.4 % (37.0-53.0); Hemoglobin* 13.9 gm/dL (13.5-17.5); Mean Corpuscular HGB Conc 34 gm/dL (32-36); Mean Corpuscular Hemoglobin 32 pg (26-34); Mean Corpuscular Volume 94 fL (80-100); Platelet Count* 134 K/uL (140-440); Red Blood Count 4.32 m/uL (4.30-5.90); White Blood Count* 4.92 K/uL (4.50-11.00)
[2022-01-05 07:35] LABS: Slide Review Reflex No
[2022-01-05 07:55] LABS: Chloride* 109 mmol/L (96-114); Potassium* 4.7 mmol/L (3.6-5.1); Sodium* 133 mmol/L (135-149)
[2022-01-05 07:58] LABS: Blood Urea Nitrogen* 18 mg/dL (7-30); Carbon Dioxide* 25 mmol/L (20-32); Estimated Glomerular Filt Rate 82 ml/min
[2022-01-05 07:59] LABS: Calcium* 8.1 mg/dL (8.4-10.6); Glucose* 91 mg/dL (60-115)
[2022-01-05 08:06] LABS: C Reactive Protein* < 0.5 mg/dL (0.5-1.0)
[2022-01-05] MEDS: FINASTERIDE 5 MG TABLET PO (08:52)
[2022-01-05] MEDS: ENOXAPARIN 30 MG/0.3ML INJ SUBCUT ×2 (08:52→20:52)
[2022-01-05] MEDS: IBUPROFEN 400 MG TABLET 600 MG PO (11:53)
--- NOTE | 2022-01-05 16:25 | P.IMPN_ITS ---
Progress Note: A&P Assessment and plan (1) Cellulitis of axilla, right: Status: Acute Assessment and Plan: Much improved. Continue with current IV antibiotics. (2) COVID-19 virus infection: Status: Acute Assessment and Plan: Concerned that his symptoms for COVID-19 are not improving. (3) Recurrent deep vein thrombosis (DVT): Problem details: recurrent after elective orthopedic surgery Status: Acute Assessment and Plan: Stable at this time. Plan Reviewed impression with patient. Answered his questions. He asked us to p laura as specified. I anticipate he might be able to be discharged as early as 24-48 hours from now. Time Spent With Patient Total time spent: 30 minutes Subjective Time Seen by Provider: 09:30 Date Seen: 01/05/22 Interval history: Generally improved. Dressing change was uncomfortable but tolerable. Less redness in right axilla. Still notes altered taste awareness. Tolerating activities. Denies chest heaviness, pressure, tightness, or pain. Denies syncope or near-syncope. Denies orthostasis. Denies nausea or vomiting. Denies dyspnea at rest or with exertion. Exam Narrative: Exam Narrative: Appears comfortable. No acute distress. Alert, oriented to self, place, time, situation. Mood and affect are congruent. Pleasant and cooperative. Articulate. Lungs are entirely clear to auscultation without wheezing rhonchi or rales. Heart tones with regular rhythm, normal S1-S2. Abdomen with active bowel sounds, soft, nontender. No focal motor neurologic deficits. No tremor asterixis or ataxia. Skin warm dry and intact, save the wound in the right axilla and right shoulder area with dressings appropriately him place. Wounds appear clean and dry. Const: Vital Signs, click to edit/add: Vital Signs - 24 hr 01/04/22 16:26 01/04/22 20:00 01/05/22 00:00 Temperature 97.4 F L Pulse Rate [Pulse Oximeter] 63 60 62 Respiratory Rate 16 18 16 Blood Pressure [Le ft Arm] 106/54 L Blood Pressure [Ri ght Arm] Pulse Oximetry 99 98 01/05/22 04:00 01/05/22 07:00 01/05/22 08:00 Temperature 97.4 F L 98 F Pulse Rate [Pulse Oximeter] 48 L 53 L 53 L Respiratory Rate 18 12 12 Blood Pressure [Le ft Arm] 105/59 L Blood Pressure [Ri ght Arm] 131/73 Pulse Oximetry 99 100 01/05/22 12:00 01/05/22 15:00 Temperature 98 F 97.8 F Pulse Rate [Pulse Oximeter] 51 L 59 L Respiratory Rate 12 12 Blood Pressure [Le ft Arm] Blood Pressure [Ri ght Arm] 134/73 114/66 Pulse Oximetry 100 100 Documenting provider has reviewed patient's vital signs: yes Labs Labs: Laboratory Results - last 24 hr 01/05/22 01/05/22 07:04 07:04 WBC 4.92 RBC 4.32 Hgb 13.9 Hct 40.4 MCV 94 MCH 32 MCHC 34 Plt Count 134 L Sodium 133 L Potassium 4.7 Chloride 109 Carbon Dioxide 25 BUN 18 Creatinine 1.0 Estimated Creat Clear 73.00 Estimated GFR 82 Glucose 91 Calcium 8.1 L C-Reactive Protein < 0.5 L
--- NOTE | 2022-01-05 18:40 | PC.NURSE ---
End of Shift: Patient pleasant and cooperative. Patient is vitally stable, lungs clear, BS WNL, IV SL and intact. Patient is independent in room. Patient rated no pain until after dressing change in which he rated pain at most 4-5/10, ibuprofen was given once. Dressing change was completed as instructed in MD's note. Patient's shoulder and axillary wound are C/D/I. Patient is tolerating regular diet, urinating, and had 2 BMs today, one formed and one loose. Patient did report some dizziness in the morning, resolved after eating lunch.
[2022-01-05] MEDS: SODIUM CHLORIDE 0.9 % (FLUSH) 10 ML SYRINGE 5 ML IVF (20:57)
[2022-01-05] MEDS: GABAPENTIN 300 MG CAPSULE PO (22:50)
[2022-01-06 04:31] VITALS: BP 115/60; PULSE 55; RESP 16; TEMP 37.3; O2SAT 95
[2022-01-06] MEDS: IBUPROFEN 400 MG TABLET 600 MG PO ×2 (04:40→12:32)
--- NOTE | 2022-01-06 06:26 | PC.NURSE ---
Shift note: The pt has been pleasant and cooperative. The dressing to left armpit x2 C/D/I. The redness to the left armpit has been improving . The pt has been denying pain to the wound site. He has been in RA with Spo2 in the 90s. Denied chest pain and other distress .
[2022-01-06 07:00] VITALS: BP 104/73; PULSE 57; RESP 18; TEMP 36.3; O2SAT 100
[2022-01-06] MEDS: FINASTERIDE 5 MG TABLET PO (09:08)
[2022-01-06] MEDS: ENOXAPARIN 30 MG/0.3ML INJ SUBCUT (09:08)
[2022-01-06] MEDS: SODIUM CHLORIDE 0.9 % (FLUSH) 10 ML SYRINGE 5 ML IVF (09:38)
[2022-01-06 11:00] VITALS: BP 117/57; PULSE 64; RESP 18; TEMP 36.2; O2SAT 100
[2022-01-06] MEDS: OXYCODONE 5 MG TABLET PO (12:30)
--- NOTE | 2022-01-06 16:02 | P.DS_ITS ---
DS: Providers Provider Time Seen by Provider: 10:15 Date Seen: 01/06/22 Date of admission: 01/03/22 20:23 Primary care physician: Alida Arias MD Admitting Clinician: Farhat White MD Consults: 01/04/22 11:54 Consult to Wound Care [CONS] Routine Comment: Consulting Provider: Odessa Rojo Attending Physician on discharge: Gerry Layton MD Date of Discharge: 01/06/22 DS: Diagnosis Discharge Diagnosis (1) Cellulitis of axilla, right: Status: Acute (2) MSSA (methicillin susceptible Staphylococcus aureus) infection: Status: Acute (3) COVID-19 virus infection: Status: Acute DS: Summary Hospital Course Hospital Course: Dawson presented to the ED at the request of his primary physician for further evaluation and treatment of presumed failed outpatient management of axillary abscess versus infected sebaceous cyst. Dawson Quispe is a 66 year old male presents the emergency room with worsening right axillary redness and pain.? He has had a lump in his right axilla for some time.? He became painful and erythematous a few days ago.? He had a clinic appointment 2 days ago where he was identified with a sebaceous cyst.? It sounds like this was infected any had an I&D of this in clinic.? Cultures were done at that time and show Gram-positive cocci.? Id and sensitivity pending.? At that time he was started on Sulfatrim.? The redness in his axilla has gotten significantly worse in the last 2 days.? Packing was removed from his I&D site today. He also notes that he had onset of generalized achiness, fatigue and malaise starting 2 days ago.? He has had a little bit of cough.? A little bit of sore throat and rhinorrhea.? Has had some chills and sweats.? He is not aware of having a documented fever.? He has had no chest pain or abdominal pain.? He has been eating less with a poor appetite but still able to eat.? No vomiting.? No diarrhea. He is vaccinated for COVID.? He did have a presumed COVID exposure with a large gathering without masking on Friday, 4 days ago. In hospital he was initially administered a single dose of IV clindamycin in the emergency department. Subsequently we switched to IV vancomycin. Eventually receive the wound culture results from a specimen obtained in the outpatient setting that grew out MSSA. Also in hospital we consulted the [facility] staff who completed the incision and drainage of the axilla. Patient will have follow-up with the Wound Clinic hereafter. In hospital we perform daily dressing changes. At time of discharge we asked him to keep the dressing in place until he has follow-up in the Wound Clinic this coming Friday. Patient had a SARS-CoV-2 PCR test that was positive on admission. He was treated with 3 days of remdesivir while in hospital. Recommended he receive his 2nd booster vaccine after discharge from the hospital. Also recommended that this coming fall in the 2nd generation COVID vaccines come out directed toward recent SARS-CoV-2 variants that he received that booster as well. Discuss additional mitigation procedures for him to adhere to hereafter. Status at Discharge Functional status at discharge: independent ambulation Overall status at discharge: patient is back to baseline Time Spent with Patient Time attestation: Total time spent providing and/or coordinating discharge services: Time spent: Greater than 30 minutes Exam Narrative: Exam Narrative: Erythema of the right axilla is much less intense. It does not go outside jessica in that we gildardo around the area of cellulitis when he 1st presented to the hospital. Lungs remain clear to auscultation. Heart tones with regular rhythm. Abdomen with active bowel sounds soft nontender. Independent transfer, station, and gait. No focal motor neurologic deficits. Cranial nerves 3-12 grossly intact. Const: Vital Signs, click to edit/add: Vital Signs - 24 hr 01/05/22 21:07 01/05/22 22:45 01/05/22 22:57 Temperature 98.3 F 97.5 F L Pulse Rate [Pulse Oximeter] 55 L 54 L 54 L Respiratory Rate 16 16 16 Blood Pressure [Le ft Arm] 106/66 129/81 Pulse Oximetry 99 98 01/06/22 04:31 01/06/22 07:00 01/06/22 11:00 Temperature 99.1 F 97.4 F L 97.1 F L Pulse Rate [Pulse Oximeter] 55 L 57 L 64 Respiratory Rate 16 18 18 Blood Pressure [Le ft Arm] 115/60 104/73 117/57 L Pulse Oximetry 95 100 100 Documenting provider has reviewed patient's vital signs: yes DS: Data Data Completed and Pending Labs on day of discharge: Preliminary micro results at discharge 01/03/22 17:42 Blood Culture - Preliminary Blood NO GROWTH AFTER 48 HOURS 01/03/22 17:18 Blood Culture - Preliminary Blood NO GROWTH AFTER 48 HOURS Discharge Plan Discharge Disposition: Home, Self-Care Date of Admission: 01/03/22 20:23 Attending Provider on Discharge: Gerry Layton Consulting Providers: Odessa Rojo Primary Care Provider: Alida Arias Condition: Stable Anticipated Discharge Date/Time: 01/06/22 13:00 Discharge Medications: Continued amoxicillin 500 mg capsule 2,000 mg PO PRN 0RF Label Comments: TAKE 4 CAPSULES BY MOUTH 1 HOUR BEFORE DENTAL APPOINTMENT aspirin 81 mg capsule 81 mg PO DAILY 0RF cyclobenzaprine 10 mg tablet 10 mg PO TID PRN0RF sildenafil 25 mg tablet 25 mg PO DAILY PRN0RF Label Comments: TAKE ONE TABLET BY MOUTH DAILY IF NEEDED FOR ERECTILE DYSFUNCTION TAKE 30 MINUTES TO 4HRS BEFORE SEXUAL ACTIVITY MAX. 100MG/24HR terbinafine HCl 250 mg tablet 250 mg PO DAILY 0RF tamsulosin 0.4 mg capsule 0.4 mg PO HS 0RF gabapentin 300 mg capsule 300 mg PO HS PRN0RF finasteride 5 mg tablet 5 mg PO DAILY 0RF rosuvastatin 5 mg tablet 5 mg PO Q48H 0RF sulfamethoxazole-trimethoprim [Bactrim DS] 800-160 mg tablet 1 tab PO BID 0RF Discharge Orders: Discharge Order (Routine); Ordered 01/06/22 Ordered By: Gerry Layton Patient Education: Wound Infection (DC), COVID-19 (Coronavirus Disease 2019) (GEN), COVID-19: Slow the Coronavirus Spread (GEN) Activity Restrictions/Additional Instructions: 1. Keep follow-up appointment in Wound Clinic as planned for this Friday. 2. Keep dressing in place until Wound clinic appointment. 3. Complete full course of sulfamethoxazole and trimethoprim antibiotic. 4. Take antibiotic sulfamethoxazole and trimethoprim with full glass of water twice daily - do not become dehydrated while on this medicine. 5. Follow-up with Dr. Arias in 1-2 weeks. Activity Level: No Restrictions Discharge Diet: Regular Follow Up Appointments: Alida Arias MD [Primary Care Provider] - 01/15/22 12:35 pm (Post Hospital Appointment with Primary) Forms: [email or web address] Info Instructions
--- NOTE | 2022-01-06 16:20 | PC.NURSE ---
Discharge Note: Pt friendly and cooperative, up independently throughout his room. VS WNL and LS COA. Afebrile. Vanco non-administered this morning per MD and pt to transition to oral abx with discharge. He denies pain but did request Oxycodone and Ibuprofen prior to dressing changes. Mepilex to armpit intact with scant amount of bloody drainage seeping through. Packing was removed and had small amount of green/wilson thick exudate and blood. Wound was irrigated with Vashe and repacked and covered with fresh mepilex. Pt was discharged to home independently at 1554, he verbalized understanding of discharge instructions and follow up appointments.
== END 2022-01-06 16:53 | disposition home or self-care (01) | DRG 579 ==
LOC: ED 19:06 → MEDSURG 20:24
PROVIDERS: Family Medicine; Admitting Provider Family Medicine; Emergency Provider Family Medicine; PCP Family Medicine; Visit Provider Family Medicine
DX: L03.111 Cellulitis of right axilla (principal); U07.1 COVID-19; L72.3 Sebaceous cyst; L02.411 Cutaneous abscess of right axilla; B95.61 Methicillin susceptible Staphylococcus aureus infection as the cause of diseases classified elsewhere; Z86.718 Personal history of other venous thrombosis and embolism; N40.0 Benign prostatic hyperplasia without lower urinary tract symptoms; Z87.891 Personal history of nicotine dependence
CPT/HCPCS: 36415; 51798; 71045; 80048; 80053; 83605; 83735; 85025; 85027; 85610; 86140; 87040; 87070; 87186; 87635; 99283; 99284; A9270; J1650; J3370; J7120; S0077

== ENCOUNTER 2022-01-08 09:42 | Outpatient (CLI) | payer OTHER, SELFPAY | END 2022-01-08 09:43 | disposition home or self-care (01) | LOC: WOUND 09:43 | PROVIDERS: PCP Family Medicine; Visit Provider Nurse Practitioner Family | DX: L02.411 Cutaneous abscess of right axilla (principal); L72.3 Sebaceous cyst; U07.1 COVID-19 | CPT/HCPCS: 11043; 97602; 99212 ==

== ENCOUNTER 2022-01-15 14:49 | Outpatient (CLI) | payer OTHER, SELFPAY | END 2022-01-15 14:50 | disposition home or self-care (01) | LOC: WOUND 14:49 | PROVIDERS: PCP Family Medicine; Visit Provider Nurse Practitioner Family | DX: L02.411 Cutaneous abscess of right axilla (principal) | CPT/HCPCS: 11042 ==

== ENCOUNTER 2022-01-21 14:57 | Outpatient (CLI) | payer OTHER, SELFPAY | END 2022-01-21 14:58 | disposition home or self-care (01) | LOC: WOUND 14:57 | PROVIDERS: PCP Family Medicine; Visit Provider Nurse Practitioner Family | DX: L02.411 Cutaneous abscess of right axilla (principal) | CPT/HCPCS: 11042 ==

== ENCOUNTER 2022-01-29 15:36 | Outpatient (CLI) | payer OTHER, SELFPAY | END 2022-01-29 15:37 | disposition home or self-care (01) | LOC: WOUND 15:37 | PROVIDERS: PCP Family Medicine; Visit Provider Nurse Practitioner Family | DX: L02.411 Cutaneous abscess of right axilla (principal) | CPT/HCPCS: 11042 ==

== ENCOUNTER 2022-02-05 15:34 | Outpatient (CLI) | payer OTHER, SELFPAY | END 2022-02-05 15:35 | disposition home or self-care (01) | LOC: WOUND 15:34 | PROVIDERS: PCP Family Medicine; Visit Provider Nurse Practitioner Family | DX: L02.411 Cutaneous abscess of right axilla (principal) | CPT/HCPCS: 11042 ==

== ENCOUNTER 2022-02-12 15:38 | Outpatient (CLI) | payer OTHER, SELFPAY | END 2022-02-12 15:39 | disposition home or self-care (01) | PROVIDERS: PCP Family Medicine; Visit Provider Nurse Practitioner Family | DX: L02.411 Cutaneous abscess of right axilla (principal) | CPT/HCPCS: 97602; 99212 ==

== ENCOUNTER 2022-02-19 15:30 | Outpatient (CLI) | payer OTHER, SELFPAY | END 2022-02-19 15:31 | disposition home or self-care (01) | LOC: WOUND 15:31 | PROVIDERS: PCP Family Medicine; Visit Provider Nurse Practitioner Family | DX: L02.411 Cutaneous abscess of right axilla (principal) | CPT/HCPCS: 11042 ==

== ENCOUNTER 2022-02-26 15:28 | Outpatient (CLI) | payer OTHER, SELFPAY | END 2022-02-26 15:29 | disposition home or self-care (01) | LOC: WOUND 15:28 | PROVIDERS: PCP Family Medicine; Visit Provider Nurse Practitioner Family | DX: L02.411 Cutaneous abscess of right axilla (principal) | CPT/HCPCS: 99213 ==

== ENCOUNTER 2022-03-05 15:29 | Outpatient (CLI) | payer OTHER, SELFPAY | END 2022-03-05 15:30 | disposition home or self-care (01) | LOC: WOUND 15:30 | PROVIDERS: PCP Family Medicine; Visit Provider Nurse Practitioner Family | DX: L02.411 Cutaneous abscess of right axilla (principal) | CPT/HCPCS: 99212 ==

== ENCOUNTER 2023-05-29 17:47 | Emergency (ER) | payer OTHER, SELFPAY ==
[2023-05-29 17:51] VITALS: BP 114/63; PULSE 91; RESP 20; TEMP 38; O2SAT 95; BMI 27.9
--- NOTE | 2023-05-29 18:11 | CRLHL7_ITS ---
For Patients: As a result of the Century Cures Act, medical imaging exams and procedure reports are released immediately into your electronic medical record. You may view this report before your referring provider. If you have questions, please contact your health care provider. INDICATION: Confusion. TECHNIQUE: CT of the head without contrast. Coronal and sagittal reformats are included. COMPARISON: None. FINDINGS: No CT evidence of acute cortical infarct. No loss of antunez white matter differentiation. No hyperdense vessels to suggest intracranial thrombus. No acute intracranial hemorrhage. No mass effect or midline shift. No hydrocephalus or extra-axial collections. Scattered white matter hypoattenuation, typical for chronic microvascular ischemic change. Intracranial vascular calcifications. No acute osseous abnormalities. Mastoid air cells and paranasal sinuses are clear. Normal soft tissues. IMPRESSION: IMPRESSION:1. No CT evidence of acute cortical infarct. No acute intracranial hemorrhage. No other acute intracranial findings. Please note that all CT scans at this facility use dose modulation, iterative reconstruction, and/or weight-based dosing when appropriate to reduce radiation dose to as low as reasonably achievable. Dictated by Christian Payne MD @ 05/29/2023 7:11:46 PM (Electronically Signed)
--- NOTE | 2023-05-29 18:19 | ED.GENADULT ---
HPI - General Adult General Date Seen: 05/29/23 Chief complaint: Neuro Symptoms/Altered Deficit Stated complaint: possible TIA Time Seen by Provider: 05/29/23 17:56 Source: patient, family, RN notes reviewed and old records reviewed Mode of arrival: ambulatory Limitations: no limitations History of Present Illness HPI narrative: Patient is a 68-year-old male here with family for evaluation of confusion. 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 Thus, he started on doxycycline on Friday. Since he has had 2 episodes of shaking chills including 1 today. He tells me that he had laid down for a nap and was not able to sleep because he was so cold. He was shaking so hard that he could not use his phone. His daughter and say that they were not home when that episode happened, came home and he had been up for about an hour and was making coffee. She says that he was confused at that time, was speaking in full sentences but they were not relevant to the situation at hand. He did not have word salad, sentences were dramatically correct, did not have aphasia or dysarthria. No other reported neurologic deficits. Symptoms waxed and waned a little bit and ultimately they were able to convince him to come in for evaluation. They believe he had a fever at that time. Temperature here is 100.4. He notes that he is not improved in terms of his respiratory symptoms since starting the doxycycline, again though says that it usually takes 17-18 doses before he feels better. Related Data Home Medications Medication Instructions Recorded Confirmed aspirin 81 mg capsule 81 mg PO DAILY 01/03/22 05/29/23 cyclobenzaprine 10 mg tablet 10 mg PO TID PRN 01/03/22 05/29/23 finasteride 5 mg tablet 5 mg PO DAILY 01/03/22 05/29/23 gabapentin 300 mg capsule 300 mg PO HS PRN 01/03/22 05/29/23 rosuvastatin 5 mg tablet 5 mg PO Q48H 01/03/22 05/29/23 sildenafil 25 mg tablet 25 mg PO DAILY PRN 01/03/22 01/04/22 sulfamethoxazole 800 1 tab PO BID 01/03/22 01/03/22 mg-trimethoprim 160 mg tablet (Bactrim DS) tamsulosin 0.4 mg capsule 0.4 mg PO HS 01/03/22 05/29/23 terbinafine HCl 250 mg tablet 250 mg PO DAILY 01/03/22 05/29/23 Previous Rx's Medication Instructions Recorded amoxicillin 500 mg capsule 2,000 mg (4 x 500 mg) PO ONCE #12 04/22/23 caps Allergies Allergy/AdvReac Type Severity Reaction Status Date / Time No Known Drug Allergies Allergy Verified 01/03/22 16:23 Review of Systems Status of ROS: Reports: 10 or more systems reviewed and unremarkable except as noted in History and below PFSH [facility] Medical History Pre-diabetes ?R73.03 - Prediabetes (ICD-10) BPH (benign prostatic hyperplasia) ?N40.0 - Benign prostatic hyperplasia without lower urinary tract symptoms (ICD-10) Concussion ?S06.0X9A - Concussion with loss of consciousness of unspecified duration, initial encounter (ICD-10) Recurrent deep vein thrombosis (DVT) ?I82.409 - Acute embolism and thrombosis of unspecified deep veins of unspecified lower extremity (ICD-10) Cellulitis ?L03.90 - Cellulitis, unspecified (ICD-10) COVID-19 ?U07.1 - COVID-19 (ICD-10) Surgical History History of tonsillectomy ?Z90.89 - Acquired absence of other organs (ICD-10) History of total hip arthroplasty ?Z96.649 - Presence of unspecified artificial hip joint (ICD-10) History of fusion of lumbar spine ?Z98.1 - Arthrodesis status (ICD-10) History of arthroplasty of left knee ?Z96.652 - Presence of left artificial knee joint (ICD-10) History of appendectomy ?Z90.49 - Acquired absence of other specified parts of digestive tract (ICD-10) Family History Father Diabetes High blood pressure Brother Coronary artery disease High blood pressure Mother High blood pressure Social History Narrative: 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 He lives with his who is his healthcare power of sports attorney. Code status is full. He does not smoke. He occasionally drinks alcohol. Smoking Status: Former smoker What tobacco products do you use: cigarettes Smoking quit date/years: >15 years ago Do you use any of these nicotine containing products: None Second hand tobacco smoke exposure: No How often do you have a drink containing alcohol: monthly or less How often do you have six or more drinks on one occasion: Never AUDIT-C Alcohol total score: 1 Non-prescribed substance use: denies use Caffeine: Yes (2 cups of coffee/day) service: No Exam Narrative: Exam Narrative: Vital signs as noted above. In general, an alert, nontoxic male. Head: Normocephalic, atraumatic. Eyes: Pupils are equal reactive. Extraocular movements are full. Conjunctivae are normal. ENT: Mucous membranes are moist. Throat is normal. Neck: Supple without lymphadenopathy. Heart: Regular rate and rhythm. No murmur or rub. Lungs: Breath sounds are somewhat coarse bilaterally, no significant bronchospasm, no fine crackles. No increased work of breathing. Abdomen: Soft and nontender. No organomegaly. Extremities: Well perfused. No edema. No calf tenderness. Pulses intact. Neurologic: Patient is alert and oriented to person and place. Speech is fluent. Face is symmetric. Moves all extremities equally. Affect: Normal. Skin: Warm and dry. Well perfused. Const: Vital Signs, click to edit/add: Vital Signs - 24 hr 05/29/23 17:51 Temperature 100.4 F H Pulse Rate [Pulse Oximeter] 91 Respiratory Rate 20 Blood Pressure [Ri ght Upper Arm] 114/63 Pulse Oximetry 95 Oxygen Delivery Me thod Room Air Documenting provider has reviewed patient's vital signs: yes Course Course ED Course: Patient had an EKG which by my review shows a sinus rhythm, incomplete right bundle-branch block, no acute ST segment changes. He is febrile here, symptoms to me sound more suspicious for confusion related to an infectious illness rather than TIA. 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 His daughter and say that he is recovered from that and they really have noticed no lingering affects from brain injury. Did discuss however that sometimes areas that have been injured in the brain previously are more susceptible to affects from illness, and you could see some recurrent symptoms. His neurologic exam is normal, will do a plain head CT to start as well as labs, blood cultures, give a L of normal saline. Chest x-ray is pending. Head CT by my review was negative for acute findings, read as negative for acute findings by Radiology. Labs are most notable for positive influenza. White blood cell count is normal, hemoglobin is 15. Mild left shift with 78% neutrophils. Metabolic panel unremarkable. LFTs unremarkable. CRP is mildly elevated at 2.3, lactate is normal 1.7. Urinalysis ordered but not ultimately obtained. Point of care troponin was 0. I reviewed all these findings with the patient and his . Overall, I think the likelihood of this representing stroke or TIA is quite low, more likely some delirium related to influenza, fever, pneumonia. Reviewed with them that CT scan is not an adequate test to rule out stroke, but that my suspicion is relatively low. Did offer admission for neurologic observation but patient declined, says he wants to go home. His chest x-ray by my review showed a questionable infiltrate on the right, radiology did read this as a pneumonia. He has been on doxycycline. It is unclear to me whether there is persistent fever and chills represents simply be influenza or whether this may be a pneumonia that is not responding to doxycycline. Therefore, I am going to switch him to Augmentin and azithromycin. Primary care follow-up for persistent symptoms, return any time for worsening. Vital Signs Vital signs: Initial Vital Signs Temperature 100.4 F H 05/29/23 17:51 Temperature Source Temporal Artery Scan 05/29/23 17:51 Pulse Rate 91 05/29/23 17:51 Respiratory Rate 20 05/29/23 17:51 Blood Pressure 114/63 05/29/23 17:51 Blood Pressure Mean 80 05/29/23 17:51 Blood Pressure Position Semi-Fowlers 05/29/23 17:51 Pulse Oximetry 95 05/29/23 17:51 Oxygen Delivery Method Room Air 05/29/23 17:51 Vital Signs Temperature 100.4 F H 05/29/23 17:51 Pulse Rate 91 05/29/23 17:51 Respiratory Rate 20 05/29/23 17:51 Blood Pressure 114/63 05/29/23 17:51 Pulse Oximetry 95 05/29/23 17:51 Oxygen Delivery Method Room Air 05/29/23 17:51 Temperature 100.4 F H 05/29/23 17:51 Pulse Rate 91 05/29/23 17:51 Respiratory Rate 20 05/29/23 17:51 Blood Pressure 114/63 05/29/23 17:51 Pulse Oximetry 95 05/29/23 17:51 Oxygen Delivery Method Room Air 05/29/23 17:51 Medical Decision Making Lab Data Labs: Lab Results 05/29/23 Range/Units 17:58 WBC 6.74 (4.50-11.00) K/uL RBC 4.73 (4.30-5.90) m/uL Hgb 15.1 (13.5-17.5) gm/dL Hct 43.9 (37.0-53.0) % MCV 93 (80-100) fL MCH 32 (26-34) pg MCHC 34 (32-36) gm/dL RDW Coeff of Nehal 12.4 (11.5-15.5) % Plt Count 152 (140-440) K/uL Neut % (Auto) 78.1 H (42.0-72.0) % Lymph % (Auto) 9.8 L (20-44) % [place] % (Auto) 11.3 H (0.0-11.0) % Eos % (Auto) 0.6 (0.0-7.0) % Baso % (Auto) 0.1 (0.0-3.0) % Neut # (Auto) 5.30 (1.7-7.0) K/uL Lymph # (Auto) 0.70 L (0.90-2.90) K/uL [place] # (Auto) 0.80 (0.00-0.90) K/UL Eos # (Auto) 0.04 (0.00-0.50) K/uL Baso # (Auto) 0.01 (0.00-0.30) K/uL Abs Immat Gran (auto) 0.01 (0.00-0.30) K/uL Imm/Tot Granulo (auto) 0.1 % Sodium 133 L (135-149) mmol/L Potassium 3.6 (3.6-5.1) mmol/L Chloride 103 (96-114) mmol/L Carbon Dioxide 20 (20-32) mmol/L Anion Gap 10 (7-15) mEq/L BUN 19 (7-30) mg/dL Creatinine 0.7 (0.5-1.5) mg/dL Estimated Creat Clear 73.21 Estimated GFR 99 ml/min Glucose 161 H (60-115) mg/dL Lactate 1.7 (0.5-1.9) mmol/L Calcium 8.7 (8.4-10.6) mg/dL Total Bilirubin 0.2 (0.1-1.5) mg/dL Direct Bilirubin 0.0 (0.0-0.5) mg/dL AST 32 (12-35) U/L ALT 31 (4-50) U/L Alkaline Phosphatase 67 (40-150) U/L C-Reactive Protein 2.3 H (0.5-1.0) mg/dL Total Protein 6.5 (6.0-8.3) g/dL Albumin 3.9 (3.3-5.0) g/dL Urine WBC Clumps [employer]ER [employer] Pj Biurate Crystals [employer] Calcium Carbonate Cryst [employer] Calcium Phosphate Cryst [employer] T[employer]ER Calcium Oxalate Crystal [employer] Cystine Crystals [employer] T[employer] Uric Acid Crystals [employer] T[employer] Triple Phos Crystals [employer] Sulfur Crystals [employer] T[employer]ER Cholesterol Crystals [employer] T[employer] Tyrosine Crystals [employer] T[employer]ER Hippuric Acid Crystals [employer] T[employer] Amorphous Sediment [employer] Other Sediment [employer] Fatty Casts [employer] T[employer] Hyaline Casts P[employer]ACH[employer] T[employer]ER Fine Granular Casts P[employer]ACH[employer] T[employer]ER Coarse Granular Casts P[employer] T[employer]ER Waxy Casts P[employer]INE TENDER RBC Casts [employer] T[employer]ER WBC Casts P[employer]ACH[employer] T[employer]ER Other Casts P[employer] T[employer]ER Urine Starch [employer] T[employer]ER Urine Mucus [employer] Urine Trichomonas [employer] Urine Yeast [employer] SARS-CoV-2 (PCR) Negative SARS-CoV-2 (Negative) Influenza Type A (PCR) POSITIVE PCR FLU A A (Negative) Influenza Type B (PCR) Negative PCR FLU B (Negative) RSV (PCR) Negative PCR RSV (Negative) POC Troponin I 0.00 L (0.01-0.04) ng/ml Discharge Plan Discharge Clinical Impression: Influenza, Pneumonia Patient Disposition: Home, Self-Care Condition: Improved Instructions: Influenza (DC), Community Acquired Pneumonia (DC) Additional Instructions: I am going to recommend that we switch your antibiotic regimen, given that your still having fevers and chills. This may be simply related to the influenza itself, but because it could be related to a pneumonia which is not being adequately covered by the doxycycline am going to recommend that we switch her coverage. I would suggest that you be seen next week in follow-up for recheck. If you are worsening, have more significant confusion, worsening shortness of breath, vomiting, ongoing fevers and chills despite treatment, you should be seen again in the ER. Activity Level: No Restrictions Discharge Diet: Regular Prescriptions: No Action aspirin 81 mg capsule 81 mg PO DAILY cyclobenzaprine 10 mg tablet 10 mg PO TID PRN sildenafil 25 mg tablet 25 mg PO DAILY PRN Patient Comments: TAKE ONE TABLET BY MOUTH DAILY IF NEEDED FOR ERECTILE DYSFUNCTION TAKE 30 MINUTES TO 4HRS BEFORE SEXUAL ACTIVITY MAX. 100MG/24HR terbinafine HCl 250 mg tablet 250 mg PO DAILY tamsulosin 0.4 mg capsule 0.4 mg PO HS gabapentin 300 mg capsule 300 mg PO HS PRN finasteride 5 mg tablet 5 mg PO DAILY rosuvastatin 5 mg tablet 5 mg PO Q48H sulfamethoxazole-trimethoprim [Bactrim DS] 800-160 mg tablet 1 tab PO BID amoxicillin 500 mg capsule 2,000 mg PO ONCE Qty: 12 2RF Rx Instructions: Take 4 capsules one hour prior to dental appointment. Follow Up/Referrals: Alida Arias MD [Primary Care Provider] - Stand Alone Forms: [employer] (Closed) Info Instructions
--- NOTE | 2023-05-29 18:26 | CRLHL7_ITS ---
For Patients: As a result of the Cures Act, medical imaging exams and procedure reports are released immediately into your electronic medical record. You may view this report before your referring provider. If you have questions, please contact your health care provider. INDICATION: Cough, shaking, chills, confusion COMPARISON: 01/04/2022 TECHNIQUE: PA and lateral 2 view chest radiograph. FINDINGS: The lungs are well expanded. Hazy opacification in the right lower lobe. No pulmonary edema. No pleural effusion. No pneumothorax. No pneumomediastinum. Normal cardiomediastinal silhouette. Bones: Normal for age. IMPRESSION: Right lower lobe pneumonia. No parapneumonic effusion. Dictated by Iris Jarrett MD @ 05/29/2023 8:11:19 PM (Electronically Signed)
[2023-05-29 18:27] LABS: Lactate Sepsis w/Reflex* 1.7 mmol/L (0.5-1.9)
[2023-05-29 18:28] LABS: Basophils Absolute Auto 0.01 K/uL (0.00-0.30); Basophils Percent Auto 0.1 % (0.0-3.0); Eosinophils Absolute Auto 0.04 K/uL (0.00-0.50); Eosinophils Percent Auto 0.6 % (0.0-7.0); Hematocrit 43.9 % (37.0-53.0); Hemoglobin* 15.1 gm/dL (13.5-17.5); Immature Granulocytes Abs Auto 0.01 K/uL (0.00-0.30); Immature Granulocytes Pct Auto 0.1 %; Lymphocytes Percent Auto 9.8 % (20-44); Mean Corpuscular HGB Conc 34 gm/dL (32-36); Mean Corpuscular Hemoglobin 32 pg (26-34); Mean Corpuscular Volume 93 fL (80-100); Monocytes Percent Auto 11.3 % (0.0-11.0); Neutrophils Percent Auto 78.1 % (42.0-72.0); Platelet Count* 152 K/uL (140-440); RDW Coefficient of Variation % 12.4 % (11.5-15.5); Red Blood Count 4.73 m/uL (4.30-5.90); White Blood Count* 6.74 K/uL (4.50-11.00)
[2023-05-29 18:36] LABS: Slide Review Reflex No
[2023-05-29 18:44] LABS: Albumin* 3.9 g/dL (3.3-5.0); Chloride* 103 mmol/L (96-114); Potassium* 3.6 mmol/L (3.6-5.1); Sodium* 133 mmol/L (135-149)
[2023-05-29 18:46] LABS: Creatinine* 0.7 mg/dL (0.5-1.5); Est. Creatinine Clearance* 73.21; Estimated Glomerular Filt Rate 99 ml/min
[2023-05-29 18:47] LABS: Alanine Aminotransferase* 31 U/L (4-50); Alkaline Phosphatase* 67 U/L (40-150); Anion Gap 10 mEq/L (7-15); Aspartate Amino Transferase* 32 U/L (12-35); Bilirubin Total* 0.2 mg/dL (0.1-1.5); Blood Urea Nitrogen* 19 mg/dL (7-30); Carbon Dioxide* 20 mmol/L (20-32); Glucose* 161 mg/dL (60-115); Total Protein* 6.5 g/dL (6.0-8.3)
[2023-05-29 18:48] LABS: Calcium* 8.7 mg/dL (8.4-10.6)
[2023-05-29 18:50] LABS: C Reactive Protein* 2.3 mg/dL (0.5-1.0)
[2023-05-29 19:08] LABS: PCR FLU A POSITIVE PCR FLU A (Negative); PCR FLU B Negative PCR FLU B (Negative); PCR RSV Negative PCR RSV (Negative)
[2023-05-29 19:36] LABS: SARS PCR* Negative SARS-CoV-2 (Negative)
== END 2023-05-29 20:43 | disposition home or self-care (01) ==
PROVIDERS: Emergency Provider Emergency Medicine; PCP Family Medicine
DX: J10.1 Influenza due to other identified influenza virus with other respiratory manifestations (principal); J18.9 Pneumonia, unspecified organism
CPT/HCPCS: 36415; 70450; 71046; 80048; 80076; 81001; 83605; 84484; 85025; 86140; 87040; 87631; 99284

== ENCOUNTER 2025-04-23 13:10 | Outpatient (CLI) | payer OTHER, SELFPAY | END 2025-04-23 13:11 | disposition home or self-care (01) | LOC: AMB 04-26 19:37 | PROVIDERS: PCP Family Medicine; Visit Provider Emergency Medicine Emergency Medical Services | DX: S29.9XXA Unspecified injury of thorax, initial encounter (principal); S49.92XA Unspecified injury of left shoulder and upper arm, initial encounter; S59.902A Unspecified injury of left elbow, initial encounter; W13.2XXA Fall from, out of or through roof, initial encounter; Y93.H9 Activity, other involving exterior property and land maintenance, building and construction; Y92.007 Garden or yard of unspecified non-institutional (private) residence as the place of occurrence of the external cause | CPT/HCPCS: A0425; A0427 ==